=== PATIENT | female | born 1965 | race Caucasian/White ===

== ENCOUNTER 2018-01-09 15:22 | Outpatient (CLI) | payer BC | END 2018-01-09 15:23 | disposition home or self-care (01) | LOC: BICMAMMO 15:22 | PROVIDERS: ATTEND Family Medicine | DX: Z12.31 Encounter for screening mammogram for malignant neoplasm of breast (principal); R92.1 Mammographic calcification found on diagnostic imaging of breast; Z80.3 Family history of malignant neoplasm of breast; Z87.891 Personal history of nicotine dependence | CPT/HCPCS: 71046; 77063; 77067 ==

== ENCOUNTER 2019-05-17 10:33 | Outpatient (CLI) | payer BC ==
--- NOTE | 2019-05-17 11:05 | MMO ---
Bilateral MAMMO Bilat Screen [facility]. CLINICAL HISTORY: Patient is 54 years old and is seen for screening. The patient has the following family history of breast cancer: paternal aunt, malignant (generic). The patient has a history of Skin cancer in May,. VIEWS: The views performed were: bilateral craniocaudal with tomosynthesis and bilateral mediolateral oblique with tomosynthesis. FILMS COMPARED: The present examination has been compared to prior imaging studies performed at [facility] on 09/06/2011, 10/10/2012, 11/28/2013 and 01/09/2018. This study has been interpreted with the assistance of computer-aided detection. MAMMOGRAM FINDINGS: There are scattered fibroglandular densities. There are no suspicious masses, suspicious calcifications, or new areas of architectural distortion. IMPRESSION: THERE IS NO MAMMOGRAPHIC EVIDENCE OF MALIGNANCY. A ROUTINE FOLLOW-UP MAMMOGRAM IN 1 YEAR IS RECOMMENDED. THE RESULTS OF THIS EXAM WERE SENT TO THE PATIENT. ACR BI-RADS Category 1 - Negative MAMMOGRAPHY NOTE: 1. A negative mammogram report should not delay a biopsy if a dominant of clinically suspicious mass is present. 2. Approximately 10% to 15% of breast cancers are not detected by mammography. 3. Adenosis and dense breasts may obscure an underlying neoplasm. Reported by: PABLO SLATER MD Electonically Signed: [id number]
--- NOTE | 2019-05-17 11:24 | RAD ---
EXAM: Chest 2 views: HISTORY: Smoker COMPARISON: None. FINDINGS: There is a normal-sized cardiomediastinal silhouette. Atherosclerotic calcifications are seen in the aorta. There is no evidence of consolidation, mass, or pleural effusion. The bones are unremarkable. IMPRESSION: No evidence of acute cardiopulmonary disease
== END 2019-05-17 10:34 | disposition home or self-care (01) ==
LOC: BICMAMMO 10:33
PROVIDERS: ATTEND Family Medicine
DX: Z12.31 Encounter for screening mammogram for malignant neoplasm of breast (principal); Z80.3 Family history of malignant neoplasm of breast; F17.200 Nicotine dependence, unspecified, uncomplicated
CPT/HCPCS: 71046; 77063; 77067

== ENCOUNTER 2019-10-08 11:22 | Outpatient (CLI) | payer BC ==
--- NOTE | 2019-10-08 17:25 | ULT ---
PELVIC ULTRASOUND: Date: 10-08-2019 Comparison: None History: Pelvic pain and fullness on the left side of the mons pubis. Technique: Multiplanar grayscale sonographic imaging of the pelvis is obtained with endovaginal imagi ng and transabdominal imaging. Ovaries are assessed with doppler interrogation including color flow a nd spectral analysis. FINDINGS: Evaluation of the pelvic soft tissues in the area of pain superficially in the left pubic region appe ar unremarkable. The uterus is poorly assessed on this examination as it is retroverted and is difficult to discretely visualize. The uterus is estimated to measure 5.3 x 2.9 x 3.1 cm. It is difficult to visualize the endometrium. The last code striper reports that the endometrium measures 8 -9 mm in thickness, which would be abnormally thickened in a post-menopausal female. However, the end ometrial is so difficult to visualize that this measurement may be inaccurate. Both ovaries are difficult to visualize measuring approximately 3.0 x 2.0 x 3.2 cm on the left and 3. 3 x 1.9 x 2.5 cm on the right. No obvious ovarian or adnexal mass. No free fluid. IMPRESSION: 1. Markedly limited study technically. The endometrial stripe is difficult to visualize and may be ab normally thickened if this patient is post-menopausal. Ovarian or adnexal mass. The area of superfici al concern is unremarkable. 2. Pelvic MRI may be beneficial to evaluate the endometrial thickness if this patient is in fact post -menopausal as a thickened endometrium in a post-menopausal may be on the basis of endometrial carcin dixie. POS: ELYSSA
== END 2019-10-08 11:23 | disposition home or self-care (01) ==
LOC: SCSULT 11:22
PROVIDERS: ATTEND Nurse Practitioner Women's Health
DX: R10.2 Pelvic and perineal pain (principal); R93.89 Abnormal findings on diagnostic imaging of other specified body structures
CPT/HCPCS: 76856

== ENCOUNTER 2020-07-21 10:40 | Outpatient (CLI) | payer BC | END 2020-07-21 10:41 | disposition home or self-care (01) | LOC: BICMAMMO 10:40 | PROVIDERS: ATTEND Family Medicine | DX: Z12.31 Encounter for screening mammogram for malignant neoplasm of breast (principal); F17.210 Nicotine dependence, cigarettes, uncomplicated; Z80.1 Family history of malignant neoplasm of trachea, bronchus and lung; Z80.3 Family history of malignant neoplasm of breast; Z85.828 Personal history of other malignant neoplasm of skin | CPT/HCPCS: 71046; 77063; 77067 ==

== ENCOUNTER 2021-08-20 15:37 | Outpatient (CLI) | payer BC | END 2021-08-20 15:38 | disposition home or self-care (01) | LOC: ULT 15:37 | PROVIDERS: ATTEND Internal Medicine Nephrology | DX: Z01.818 Encounter for other preprocedural examination (principal) | CPT/HCPCS: 93970 ==

== ENCOUNTER 2021-08-25 10:39 | Outpatient (CLI) | payer BC ==
[2021-08-25 12:07] LABS: #Basophils 0.1 10x3/uL (0.0-0.2); #Eosinphils 0.3 10x3/uL (0.0-0.5); #Monocytes 0.4 10x3/uL (0.0-1.1); #Neutrophils 2.9 10x3/uL (1.5-8.4); %Basophils 1.3 % (0.0-2.0); %Eosinophils 5.2 % (0.0-6.0); %Lymphocytes 37.1 % (18.0-47.0); %Monocytes 7.4 % (0.0-10.0); %Neutrophils 48.7 % (40.0-75.0); Mean Corpuscular HGB CONC 34.1 g/dL (32.0-36.0); Mean Corpuscular Hemoglobin 29.2 pg (27.0-33.0); Mean Corpuscular Volume 85.7 fl (81.6-98.3); Mean Platelet Volume 11.6 fl (7.4-10.4); Platelet Count 337 10x3/uL (150-450); RBC Distribution Width 12.2 % (11.5-14.5); Red Blood Cell (RBC) Count 3.42 10x6/uL (3.90-5.03); White Blood Cell (WBC) Count 5.9 10x3/uL (3.5-10.5)
[2021-08-25 12:23] LABS: Anion Gap 19 mmol/L (10-20); BUN (Urea Nitrogen) 92 mg/dL (9.8-20.1); Calc. Creatinine Clearance 0 mL/min (70-130); Calcium 10.3 mg/dL (7.8-10.44); Carbon Dioxide 19 mmol/L (22-29); Chloride 104 mmol/L (98-107); Glucose 107 mg/dL (70-105); Potassium 3.9 mmol/L (3.5-5.1); Sodium 138 mmol/L (136-145)
[2021-08-25 21:14] LABS: SARS-CoV-2 PCR by NAA Not Detected (NotDetected)
== END 2021-08-25 10:40 | disposition home or self-care (01) ==
LOC: LABBT 10:39
PROVIDERS: ATTEND Specialist
DX: Z01.818 Encounter for other preprocedural examination (principal); Z20.822 Contact with and (suspected) exposure to COVID-19
CPT/HCPCS: 80048; 85025; 93005; 93010; U0003; U0005

== ENCOUNTER 2021-08-28 08:58 | Day surgery (SDC) | payer BC ==
[2021-08-26 10:23] VITALS: BMI 26.9
[2021-08-28] MEDS ORDERED: Acetaminophen 500 MG TAB ONE (09:32)
[2021-08-28] MEDS ORDERED: Lidocaine 1% MPF 2 ML VIAL ONE (09:42)
[2021-08-28] MEDS ORDERED: Bupivacaine 0.25% 10 ML VIAL ONE (11:47)
[2021-08-28] MEDS ORDERED: Protamine Sulfate 50 MG/5 ML VIAL ONE (11:47)
[2021-08-28] MEDS ORDERED: Heparin 10,000 UNITS/ 10 ML VIAL ONE (11:47)
[2021-08-28] MEDS ORDERED: Lidocaine 1% w/Epinephrine 1:100K 20 ML VIAL ONE (11:47)
[2021-08-28] MEDS ORDERED: Heparin 5,000 UNITS/ML VIAL ONE (11:47)
[2021-08-28] MEDS ORDERED: fentaNYL Citrate/PF 100 MCG/2 ML SYRINGE ONE (11:56)
[2021-08-28] MEDS ORDERED: ceFAZolin (BATCH) 2 GM/100 ML BAG ONE (12:06)
[2021-08-28] MEDS ORDERED: PROPOFOL 200 MG/20 ML VIAL ONE (12:15)
[2021-08-28] MEDS ORDERED: Ondansetron PF 4 MG/2 ML Vial ONE (12:15)
[2021-08-28] MEDS ORDERED: Lidocaine 1% PF 5 ML VIAL ONE (12:15)
[2021-08-28] MEDS ORDERED: Rocuronium Bromide 10 MG/ML (10ML VIAL) ONE (12:15)
[2021-08-28] MEDS ORDERED: Glycopyrrolate 0.2 MG/ML 5 ML SYRINGE ONE (12:15)
[2021-08-28] MEDS ORDERED: Fentanyl 100 MCG/2 ML VIAL ONE (14:00)
[2021-08-28] MEDS ORDERED: HYDROcodone/Acetaminophen 5/325 mg Tablet ONE (15:19)
== END 2021-08-28 15:50 | disposition home or self-care (01) ==
LOC: SDC 08:58
PROVIDERS: ATTEND Specialist
PROC: 0DQU4ZZ Repair Omentum, Percutaneous Endoscopic Approach (ICD-10-PCS; principal; 2021-08-28)
PROC: 0WHG43Z Insertion of Infusion Device into Peritoneal Cavity, Percutaneous Endoscopic Approach (ICD-10-PCS; principal; 2021-08-28)
PROC: 031B0ZF Bypass Right Radial Artery to Lower Arm Vein, Open Approach (ICD-10-PCS; principal; 2021-08-28)
DX: I12.9 Hypertensive chronic kidney disease with stage 1 through stage 4 chronic kidney disease, or unspecified chronic kidney disease (principal); E11.22 Type 2 diabetes mellitus with diabetic chronic kidney disease; N18.9 Chronic kidney disease, unspecified; E78.00 Pure hypercholesterolemia, unspecified; Z91.51 Personal history of suicidal behavior; Z79.84 Long term (current) use of oral hypoglycemic drugs; Z79.899 Other long term (current) drug therapy
CPT/HCPCS: C1776; J0690; J1644; J2405; J2704; J2720; J3010; S0020